=== PATIENT | female | born 1985 | race Hispanic/Latino ===

== ENCOUNTER 2018-11-16 12:15 | Outpatient (CLI) | payer OTHER ==
--- NOTE | 2018-11-16 13:24 | RAD ---
RADIOGRAPH LUMBAR SPINE 2 VIEWS: DATE: 11/16/18 HISTORY: 33-year-old female with persistent low back pain for 3 months after falling off ladder. FINDINGS: Alignment is normal. Vertebral body heights and disc spaces are maintained. There is no evidence of fracture, significant osteophytes, or any other focal osseous abnormality. IMPRESSION: Normal. francisco javier [] POS: [facility]
== END 2018-11-16 12:16 | disposition home or self-care (01) ==
LOC: BICRAD 12:15
PROVIDERS: ATTEND Family Medicine
DX: M54.9 Dorsalgia, unspecified (principal)
CPT/HCPCS: 72100